=== PATIENT | female | born 1945 | race Caucasian/White ===

== ENCOUNTER 2019-11-09 13:59 | Emergency (ER) | payer MEDICARE, BC, SELFPAY ==
--- NOTE | ~2019-11-09 | CT_ITS ---
EXAMINATION: CT brain wo con DATE: 11/09/2019 15:41 INDICATION: Status post fall. Nasal pain. TECHNIQUE: Computed tomography (CT) of the head was performed without intravenous contrast. The dose- length product was 605.33 mGy-cm. The mA was adjusted according to patient size. Iterative reconstruc tion technique was employed. COMPARISON: 02/23/2011 FINDINGS: There are scattered moderate periventricular and subcortical white matter changes, most lik rosario related to small vessel ischemic disease (microangiopathy). Chronic left lacunar infarction. No a cute intracranial hemorrhage, infarction, mass or mass effect. There is intracranial atherosclerosis. Paranasal sinuses and mastoids are pneumatized. Midline sagittal images are unremarkable. IMPRESSION: 1. No acute intracranial abnormality. 2: Chronic left lacunar infarction. 3: Chronic age-related findings. Reviewed, dictated and finalized at location A. ATION CLERK
--- NOTE | ~2019-11-09 | CT_ITS ---
EXAMINATION: CT facial bones wo con EXAM DATE: 11/09/2019 15:40 INDICATION: Fall, nasal pain. TECHNIQUE: Spiral CT of the facial bones was acquired in the axial plane without contrast. Coronal reformatted images were also reviewed. The dose-length product (DLP) for this examination was 474.72 mGy-cm. The exposure was tailored according to patient size, and iterative reconstruction (ASIR) wa s used as additional dose reduction technique. There is no prior study for comparison. FINDINGS: There are no displaced nasal bone fractures. The mandible, sinuses and orbits are intact. The orbits, globes and extraocular muscles are unremarkable. Bilateral cataract surgery. There i s small right maxillary sinus retention cyst or polyp. IMPRESSION: 1. No acute facial fracture. Reviewed, dictated and finalized at location A. STANT MANAGER RETAIL
[2019-11-09 14:01] VITALS: BP 166/95; PULSE 60; RESP 16; TEMP 36.4; O2SAT 100
--- NOTE | 2019-11-09 15:28 | ED.FALL ---
HPI - Fall General Chief Complaint: Fall Stated Complaint: ground level fall Time Seen by Provider: 11/09/19 15:17 Source: patient Mode of arrival: ambulatory Limitations: no limitations History of Present Illness HPI Narrative: This is a 74-year-old female that presents the emergency department after a fall today. Reports she was walking her dog and tripped on the sidewalk. Reports hitting her face on the ground. She was unable to catch her fall. Reports since she has had nasal pain and swelling. Denies prodromal symptoms, other injuries, loss of consciousness, vision changes, vomiting, numbness or weakness. Related Data Home Medications Medication Instructions Recorded Confirmed Bacillus coagulans 10 billion cell cell PO 08/24/19 08/24/19 capsule,delayed release acyclovir 200 mg capsule 200 mg PO DAILY cap 08/24/19 08/24/19 aspirin 81 mg tablet,delayed 81 mg PO DAILY 08/24/19 08/24/19 release cholecalciferol (vitamin D3) 25 1,000 unit PO DAILY 08/24/19 08/24/19 mcg (1,000 unit) capsule conjugated estrogens 0.625 mg 0.625 mg PO DAILY 08/24/19 08/24/19 tablet levothyroxine 125 mcg tablet 125 mcg PO DAILY 08/24/19 08/24/19 mirabegron 25 mg tablet,extended 25 mg PO DAILY 08/24/19 08/24/19 release 24 hr omeprazole 20 mg capsule,delayed 20 mg PO DAILY 08/24/19 08/24/19 release turmeric 400 mg capsule 25 mg PO cap 08/24/19 08/24/19 Allergies Allergy/AdvReac Type Severity Reaction Status Date / Time Sulfa (Sulfonamide Allergy Unknown Hives Verified 11/09/19 15:16 Antibiotics) Review of Systems Review of Systems: Narrative: CONSTITUTIONAL: Denies fever EYES: Denies visual changes CARDIOVASCULAR: Denies chest pain GASTROINTESTINAL: Denies vomiting MUSCULOSKELETAL: Denies back pain, joint pain, or myalgia. NEUROLOGIC: Denies headache, numbness, or weakness. All systems reviewed & are unremarkable except as noted in HPI and below PMFSH Past Medical History Medical History (Updated 11/09/19 @ 15:59 by Johanna Jose PA-C) Aortic valve insufficiency Arthritis Cardiac murmur Chronic fatigue, unspecified Essential hypertension Gastroesophageal reflux disease with esophagitis Left hip pain Vitamin D deficiency, unspecified Surgical History Surgical History (Updated 08/24/19 @ 08:17 by [place] Stark [facility]) History of bladder suspension procedure S/P hysterectomy with oophorectomy Family History Family History (Updated 01/03/19 @ 13:30 by DOCTOR UNKNOWN) Sibling Patient's sister is in good health Patient's brother is in good health Father Family history unknown Mother Family history of malignant neoplasm of esophagus Family history of malignant neoplasm Social History Social History Smoking status: Never smoker Alcohol intake: never Exam Narrative: Exam Narrative: GENERAL: Elderly, well-nourished, and in no acute distress. HEAD: Normocephalic. Moderate amount of nasal swelling and bruising EYES: PERRLA and EOMI. ENT: Nares clear, no rhinorrhea or epistaxis. Mucous membranes moist. Oropharynx without tonsillar hypertrophy exudate or other lesions. Bilateral TMs pearly montes non-bulging NECK: Supple. No adenopathy or masses. No midline spinal tenderness CHEST: Clear to auscultation. No respiratory distress. No wheezes rales or rhonchi HEART: Regular rate and rhythm. No murmur heard. Normal peripheral pulses. EXTREMITIES: Normal range of motion. No edema. Strength equal in bilateral upper extremities (5/5) SKIN: Warm, dry, no rash. NEURO: No focal deficits. Alert and oriented x3. Cranial nerves II through XII grossly intact. Normal [id number] PSYCH: Normal mood and affect Course Vital Signs Vital signs: Vital Signs Temperature 97.5 F L 11/09/19 14:01 Pulse Rate 60 11/09/19 14:01 Respiratory Rate 16 11/09/19 14:01 Blood Pressure 166/95 H 11/09/19 14:01 Pulse Oximetry 100 11/09/19 14:01 Temperature 97.5 F L 11/09/19 14:01 P
== END 2019-11-09 17:37 | disposition home or self-care (01) ==
PROVIDERS: Emergency Provider Emergency Medicine; PCP Internal Medicine
DX: S00.33XA Contusion of nose, initial encounter (principal); Z79.82 Long term (current) use of aspirin; M19.90 Unspecified osteoarthritis, unspecified site; I35.1 Nonrheumatic aortic (valve) insufficiency; I10 Essential (primary) hypertension; K21.0 Gastro-esophageal reflux disease with esophagitis; E55.9 Vitamin D deficiency, unspecified; Y93.K1 Activity, walking an animal; W01.0XXA Fall on same level from slipping, tripping and stumbling without subsequent striking against object, initial encounter
CPT/HCPCS: 70450; 70486; 99284

== ENCOUNTER 2020-04-18 10:38 | Outpatient (CLI) | payer MEDICARE, BC, SELFPAY ==
[2020-04-18 11:04] LABS: Hematocrit 37.1 % (37.0-47.0); Hemoglobin 11.5 g/dL (12.0-15.0)
[2020-04-18 11:19] LABS: Anion Gap 12.4 mmol/L (7-16); Blood Urea Nitrogen 20 mg/dL (7-17); Calcium 9.2 mg/dL (8.4-10.2); Carbon Dioxide 26 mmol/L (22-30); Chloride 107 mmol/L (98-107); Estimated Glomerular Filt Rate > 60; Glucose 95 mg/dL (65-105); Potassium 4.4 mmol/L (3.4-5.0); Sodium 141 mmol/L (137-145)
[2020-04-18 12:08] LABS: Vitamin D 25 Hydroxy 37.8 ng/mL
[2020-04-21 17:48] LABS: ANA Cascade Screen Negative (Negative)
== END 2020-04-18 10:39 | disposition home or self-care (01) ==
PROVIDERS: PCP Internal Medicine; Visit Provider Internal Medicine
DX: E55.9 Vitamin D deficiency, unspecified (principal); E03.9 Hypothyroidism, unspecified; I10 Essential (primary) hypertension; D64.9 Anemia, unspecified; R53.83 Other fatigue; Z84.0 Family history of diseases of the skin and subcutaneous tissue
CPT/HCPCS: 36415; 80048; 82306; 84443; 85014; 85018; 86038

== ENCOUNTER 2020-06-29 10:33 | Outpatient (CLI) | payer MEDICARE, BC, SELFPAY | END 2020-06-29 10:34 | disposition home or self-care (01) | PROVIDERS: PCP Internal Medicine; Visit Provider Internal Medicine | DX: E03.9 Hypothyroidism, unspecified (principal) | CPT/HCPCS: 36415; 84443 ==

== ENCOUNTER 2020-08-28 13:48 | Outpatient (CLI) | payer MEDICARE, BC, SELFPAY ==
--- NOTE | 2020-08-28 13:56 | ECHO_ITS ---
Patient Info Name: Keisha Collins Age: 74 years : 1945 Gender: Female Ht: 65 in Wt: 180 lbs BSA: 1.96 m2 BP: 148 / 77 mmHg Technical Quality: Good Exam Date: 08/28/2020 2:09 PM Exam Location: [facility] Patient Status: Outpatient Admit Date: 08/28/2020 Staff Ordering Physician: Brett Steiner DO Equipment Records Supervisor: Mauricio Clark RDCS, RT Attending Provider: Brett Steiner DO Referring Physician: Jatin MOON; Exam Type: CA echo doppler color flow Study Info Indications I35.1 - Nonrheumatic aortic (valve) insufficiency Complete two-dimensional, color flow and Doppler transthoracic echocardiogram is performed. Strain analysis performed. Summary 1. Complete two-dimensional, color flow and Doppler transthoracic echocardiogram is performed. 2. Left ventricular chamber dimension is normal. 3. Left ventricular systolic function is normal, estimated at 65-70%. 4. There is mildly increased left ventricular wall thickness. 5. The left ventricular diastolic function is grade I diastolic dysfunction. 6. E/e' 18 is elevated. 7. Global longitudinal strain is normal at -19.4%. 8. Left atrial chamber dimension is mildly enlarged. 9. There is mild to moderate aortic valve regurgitation. 10. The mitral valve has mildly calcified annulus. 11. There is trace tricuspid valve regurgitation. 12. No pulmonary hypertension, estimated pulmonary arterial systolic pressure is 38 mmHg. Left Ventricle E/e' 18 is elevated. Global longitudinal strain is normal at -19.4%. Left ventricular chamber dimension is normal. Left ventricular systolic function is normal, estimated at 65-70%. There is mildly increased left ventricular wall thickness. The left ventricular diastolic function is grade I diastolic dysfunction. Right Ventricle Right ventricular chamber dimension is normal. Right ventricular systolic function is normal. Left Atria Left atrial chamber dimension is mildly enlarged. Right Atria Right atrial chamber dimension is normal. Aortic Valve The aortic valve is trileaflet. There is no aortic valve stenosis. There is mild to moderate aortic valve regurgitation. Pulmonic Valve There is no pulmonic regurgitation. Mitral Valve The mitral valve has mildly calcified annulus. There is no mitral valve stenosis. There is no mitral valve regurgitation. Tricuspid Valve There is trace tricuspid valve regurgitation. No pulmonary hypertension, estimated pulmonary arterial systolic pressure is 38 mmHg. Pericardium/Pleural There is no pericardial effusion. Inferior Vena Cava Normal inferior vena cava with >50% collapse upon inspiration consistent with normal right atrial pressure, 5 mmHg. Aorta The aortic root size at the sinus of Valsalva is normal. Left Ventricular Outflow Tract Name Value Normal LVOT 2D LVOT Diameter 2.0 cm LVOT Doppler LVOT Peak Gradient 6 mmHg LVOT Mean Gradient 2 mmHg LVOT VTI 30 cm LVOT VTI/AV VTI Ratio 0.7 LVOT Stroke Volume
== END 2020-08-28 13:49 | disposition home or self-care (01) ==
PROVIDERS: PCP Internal Medicine; Visit Provider Internal Medicine Cardiovascular Disease
DX: I35.1 Nonrheumatic aortic (valve) insufficiency (principal)
CPT/HCPCS: 93306

== ENCOUNTER 2020-09-16 08:43 | Outpatient (CLI) | payer MEDICARE, BC, SELFPAY ==
[2020-09-16 09:11] LABS: Alanine Aminotransferase 25 U/L (4-35); Alkaline Phosphatase 81 U/L (38-126); Anion Gap 6 mmol/L (8-16); Aspartate Amino Transferase 33 U/L (14-36); Bilirubin,Total 0.4 mg/dL (0.2-1.3); Blood Urea Nitrogen 17 mg/dL (7-17); Calcium 9.5 mg/dL (8.4-10.2); Carbon Dioxide 29 mmol/L (22-30); Chloride 108 mmol/L (98-107); Cholesterol 202 mg/dL (0-200); Estimated Glomerular Filt Rate > 60; Glucose 107 mg/dL (65-105); HDL Direct 44 mg/dL; Potassium 4.2 mmol/L (3.4-5.0); Sodium 143 mmol/L (137-145); Triglycerides 157 mg/dL (<150)
[2020-09-16 09:22] LABS: LDL Cholesterol Direct 127 mg/dL
[2020-09-16 09:41] LABS: Thyroid Stimulating Hormone 0.569 uIU/mL (0.465-4.680)
[2020-09-16 09:53] LABS: Vitamin D 25 Hydroxy 41.4 ng/mL
== END 2020-09-16 08:44 | disposition home or self-care (01) ==
PROVIDERS: PCP Internal Medicine; Visit Provider Internal Medicine
DX: Z13.220 Encounter for screening for lipoid disorders (principal); R53.83 Other fatigue; I10 Essential (primary) hypertension; E03.9 Hypothyroidism, unspecified; E55.9 Vitamin D deficiency, unspecified
CPT/HCPCS: 36415; 80053; 80061; 82306; 84443

== ENCOUNTER 2020-11-26 13:29 | Outpatient (CLI) | payer MEDICARE, BC, SELFPAY ==
--- NOTE | 2020-11-28 12:51 | WPDHOLTEREM ---
Holter/Event Monitor Holter/Event Monitor Date of procedure: 11/26/20 Procedure Type: 24 hour holter monitor Indications: PVC's Conclusion: 1. 24 hour holter monitor on 11/26/20. 2. Predominant rhythm is sinus rhythm. HR range 45-100 bpm; average HR 61 bpm. 3. There are 642 premature supraventricular complexes and 13 supraventricular couplets. There are 2 episodes of atrial tachycardia, fastest at 143 bpm and longest lasting 8 beats. 4. There are 6,751 premature ventricular complexes, 153 ventricular couplets, 1 ventricular triplet and 250 ventricular trigeminy. One ventricular tachycardia at 130 bpm lasting 4 beats. 5. No sinoatrial or atrioventricular blocks. No significant pauses greater than 2 seconds. 6. No symptoms available for correlation.
== END 2020-11-26 13:30 | disposition home or self-care (01) ==
PROVIDERS: PCP Internal Medicine; Visit Provider Internal Medicine
DX: I49.3 Ventricular premature depolarization (principal)
CPT/HCPCS: 93225; 93226

== ENCOUNTER → 2020-12-10 03:15 | Outpatient (CLI) | payer MEDICARE, BC, SELFPAY ==
[2020-12-10 18:08] LABS: SARS-CoV-2 RNA PCR Negative
== END ==
PROVIDERS: PCP Internal Medicine; Visit Provider Internal Medicine Critical Care Medicine
DX: Z20.822 Contact with and (suspected) exposure to COVID-19 (principal)
CPT/HCPCS: C9803; U0003; U0005

== ENCOUNTER 2020-12-13 09:03 | Outpatient (CLI) | payer MEDICARE, BC, SELFPAY ==
--- NOTE | 2020-12-27 10:13 | WPDSLEEPSTUD ---
Sleep Study Ordering Provider: Brett Steiner DO Interpreting Physician: Mariza Enamorado MD Sleep Study Type: Split Polysomnogram Height: 1.63 m Weight: 81.647 kg Body Mass Index: 30.9 Neck Circumference (inches): 15 Newborn: 8 Reason for Sleep Study Severe fatigue, tired upon waking Sleep History Keisha Collins is a 75 year old female who complains of severe fatigue. She is tired in the morning after waking. She does not snore and other people do not tell her that she snores. She does not awaken at night with heartburn, belching or coughing. She does not awaken from sleep feeling short of breath. She does not have trouble sleep with a cold and she does not gasp for breath at night. She does not sweat excessively at night or notice her heart pounding or beating irregularly night. She frequently falls asleep during the day, never involuntarily, and never while driving. She does not have loss of muscle tone with strong emotion, and she does not have daytime difficulties due to excessive sleepiness , now retired. She does not feel paralyzed on waking or falling asleep. She does not have vivid dreamlike scenes upon awakening or falling asleep. She does not feel afraid to go to sleep. She does not have nightmares. She does not remember her dreams. She denies racing thoughts. She does not feel sad, depressed, or anxious. She does not have muscular tension. She has not noticed parts of her body jerking at night, does not kick at night, and does not have crawling or aching feelings in her legs prior to sleep. She does not have any kind of leg pain at night. She denies morning jaw pain. She does not grind her teeth during sleep. She frequently is bothered by pain during the day. She is not awakened by pain at night. She occasionally feels stiff in the morning with sore or achy muscles. She does not wake up with pain in the neck and spine. She has headaches, IBS, fatigue and occasional insomnia. Normal bedtime is 11:00 p.m. falling asleep sometimes within 15 minutes. She wakes twice to go to the bathroom, staying awake for 5 minutes. She wakes the morning at 7:30 a.m.. Her weekend schedule is the same. She estimates 7- 8 hours of sleep at night. She takes naps. A short nap may be refreshing. She feels better in the morning compared to other times of day. Habits: No tobacco. Caffeine: 2 servings of tea per day. No alcohol or recreational drugs. [facility] Past Medical History Medical History Aortic valve insufficiency Arthritis Cardiac murmur Chronic fatigue, unspecified Essential hypertension Gastroesophageal reflux disease with esophagitis Left hip pain Vitamin D deficiency, unspecified Surgical History Surgical History History of bladder suspension procedure S/P hysterectomy with oophorectomy Family History Family History Sibling Patient's sister is in good health Patient's brother is in good health Father Family history unknown Mother Family history of malignant neoplasm of esophagus Family history of malignant neoplasm Social History Social History Smoking status: Never smoker Alcohol intake: never Medications Home Medications Medication Instructions Recorded Confirmed Type Bacillus coagulans 10 billion cell cell PO 08/24/19 12/03/20 History capsule,delayed release aspirin 81 mg tablet,delayed 81 mg PO DAILY 08/24/19 12/03/20 History release cholecalciferol (vitamin D3) 25 1,000 unit PO DAILY 08/24/19 12/03/20 History mcg (1,000 unit) capsule conjugated estrogens 0.625 mg 0.625 mg PO DAILY 08/24/19 12/03/20 History tablet mirabegron 25 mg tablet,extended 25 mg PO DAILY 08/24/19 12/03/20 History release 24 hr dicyclomine 10 mg capsule 10 mg PO DAILY PRN
[2020-12-27 11:56] VITALS: BMI 30.9
== END 2020-12-13 09:04 | disposition home or self-care (01) ==
LOC: ANHCSM 09:03
PROVIDERS: PCP Internal Medicine; Visit Provider Internal Medicine Cardiovascular Disease
DX: G47.33 Obstructive sleep apnea (adult) (pediatric) (principal); G47.10 Hypersomnia, unspecified
CPT/HCPCS: 95811

== ENCOUNTER 2020-12-13 09:34 | Outpatient (CLI) | payer MEDICARE, BC, SELFPAY ==
--- NOTE | ~2020-12-13 | NM_ITS ---
EXAMINATION: NM ren stress w perfusion DATE: 12/13/2020 11:45 INDICATION: Palpitations. Dyspnea with exertion. TECHNIQUE: Rest images were obtained following intravenous administration of 9.2 mCi Tc99m tetrofosmi n (Myoview). The patient was infused intravenously with Lexiscan (Regadenoson). Then, 29.77 mCi Tc99m tetrofosmin (Myoview) was administered intravenously, and stress images were obtained. Data was sergei nstructed into short axis and horizontal and vertical long axis SPECT images. Gated SPECT images were also obtained. COMPARISON: None. FINDINGS: There is no definite reversible or fixed perfusion abnormality to suggest ischemia or infarction. Th ere is normal left ventricular chamber size, wall motion and ejection fraction. Left ventricular eje ction fraction measures 66%. IMPRESSION: 1. Normal myocardial perfusion at rest and during stress. 2. Left ventricular ejection fraction measuring 66%. Reviewed, dictated and finalized at location A.
--- NOTE | 2020-12-13 09:40 | EST_ITS ---
Patient Info Name: Keisha Collins Age: 75 years : 1945 Gender: Female Ht: 64 in Wt: 180 lbs BSA: 1.95 m2 Exam Date: 12/13/2020 10:24 AM Exam Location: [facility] Stress Patient Status: Outpatient Admit Date: 12/13/2020 Staff Ordering Physician: Brett Steiner DO Attending Provider: Brett Steiner DO Exercise Technologist: Estefani Lott RDCS Exercise Physician: Brett Steiner DO Exam Type: CA stress ren w NM Study Info Indications R00.2 - Palpitations A regadenoson stress test was performed. Summary 1. 1. Negative lexiscan stress test for ischemic ST changes by ECG criteria. 2. 2. Baseline sinus bradycardia. 3. 3. Nuclear scan to follow and will be reported separately. Please correlate with it. 4. 4. Patient advised to decrease Metoprolol Succinate 25 mg daily due to bradycardia. 5. 5. Patient informed of the above results. Protocol: Lexiscan Stress ECG Details Stage: REST Duration (min): 8 min : 20 sec HR (bpm): 47 SBP (mmHg): 132 DBP (mmHg): 71 Stage: REST Duration (min): 11 min : 30 sec HR (bpm): 50 SBP (mmHg): 132 DBP (mmHg): 71 Stage: STAGE 1 Duration (min): 0 min : 59 sec HR (bpm): 70 SBP (mmHg): 132 DBP (mmHg): 71 Stage: RECOVERY Duration (min): 1 min : 0 sec HR (bpm): 69 SBP (mmHg): 159 DBP (mmHg): 71 Stage: RECOVERY Duration (min): 2 min : 0 sec HR (bpm): 66 SBP (mmHg): 159 DBP (mmHg): 71 Stage: RECOVERY Duration (min): 3 min : 0 sec HR (bpm): 65 SBP (mmHg): 151 DBP (mmHg): 70 Stage: RECOVERY Duration (min): 4 min : 0 sec HR (bpm): 66 SBP (mmHg): 151 DBP (mmHg): 70 Stage: RECOVERY Duration (min): 4 min : 43 sec HR (bpm): 63 SBP (mmHg): 136 DBP (mmHg): 72 Rest HR: 50 bpm Peak HR: 72 bpm Rest Sys BP: 132 mmHg Peak Sys BP: 159 mmHg Max Pred HR: 145 bpm % Max Pred HR: 50 % Target HR: 123 bpm Max RPP: 11,448 bpm*mmHg Termination Reason: Completed protocol Cardiac Symptoms: Shortness of breath Total Time: 1 min : 0 sec Rest Verde BP: 71 mmHg Peak Verde BP: 71 mmHg Total Dose: 0.4 mg Resting ECG Sinus bradycardia. Stress ECG No ST changes. Arrhythmias None. Report Signatures
== END 2020-12-13 09:35 | disposition home or self-care (01) ==
LOC: ANHCARD 09:34
PROVIDERS: PCP Internal Medicine; Visit Provider Internal Medicine Cardiovascular Disease
DX: R06.09 Other forms of dyspnea (principal); R00.2 Palpitations
CPT/HCPCS: 78452; 93017; 95811; A9502; J2785

== ENCOUNTER 2021-03-12 09:43 | Outpatient (CLI) | payer MEDICARE, BC, SELFPAY ==
[2021-03-12 10:31] LABS: Alanine Aminotransferase 15 U/L (4-35); Albumin Level 4.2 g/dL (3.5-5.1); Alkaline Phosphatase 80 U/L (38-126); Anion Gap 7 mmol/L (8-16); Aspartate Amino Transferase 25 U/L (14-36); Bilirubin,Total 0.3 mg/dL (0.2-1.3); Blood Urea Nitrogen 18 mg/dL (7-17); Calcium 9.7 mg/dL (8.4-10.2); Carbon Dioxide 29 mmol/L (22-30); Chloride 107 mmol/L (98-107); Cholesterol 154 mg/dL (0-200); Estimated Glomerular Filt Rate > 60; Glucose 93 mg/dL (65-105); HDL Direct 60 mg/dL; Potassium 5.1 mmol/L (3.4-5.0); Sodium 143 mmol/L (137-145); Triglycerides 90 mg/dL (<150)
[2021-03-12 10:41] LABS: LDL Cholesterol Direct 72 mg/dL
[2021-03-12 10:58] LABS: Thyroid Stimulating Hormone 0.249 uIU/mL (0.465-4.680)
[2021-03-12 11:23] LABS: Vitamin D 25 Hydroxy 44.7 ng/mL
== END 2021-03-12 09:44 | disposition home or self-care (01) ==
LOC: ANHLAB 09:47
PROVIDERS: PCP Internal Medicine; Visit Provider Nurse Practitioner
DX: E03.9 Hypothyroidism, unspecified (principal); R73.02 Impaired glucose tolerance (oral); E55.9 Vitamin D deficiency, unspecified
CPT/HCPCS: 36415; 80053; 80061; 82306; 83036; 84443

== ENCOUNTER 2021-03-29 10:13 | Outpatient (CLI) | payer MEDICARE, BC, SELFPAY ==
--- NOTE | ~2021-03-29 | CT_ITS ---
EXAMINATION: CT brain wo con DATE: 03/29/2021 10:51 INDICATION: Headache. TECHNIQUE: Computed tomography (CT) of the head was performed without intravenous contrast. The mA wa s adjusted according to patient size. Iterative reconstruction technique was employed. The dose-lengt h product was 605.33 mGy-cm. COMPARISON: Head CT 11/09/2019 FINDINGS: There are scattered areas of low attenuation in the cerebral white matter. There is an old lacunar infarct versus prominent perivascular space in the left basal ganglia. There is no intracrani al hemorrhage, acute infarction, or abnormal intracranial mass lesion. The ventricles are normal in s ize. The paranasal sinuses are clear. There are likely changes of ocular lens replacement surgeries. The mastoid air cells are normal. IMPRESSION: 1. Stable moderate nonspecific cerebral white matter disease, which likely represents chronic small v essel ischemic disease. 2. Old lacunar infarct versus prominent perivascular space in the left basal ganglia. Reviewed, dictated and finalized at location A. IMPRESSION: 1. Stable moderate nonspecific cerebral white matter disease, which likely repr esents chronic small vessel ischemic disease. 2. Old lacunar infarct versus prominent perivascular space in the left basal ga nglia.
== END 2021-03-29 10:14 | disposition home or self-care (01) ==
PROVIDERS: PCP Internal Medicine; Visit Provider Internal Medicine
DX: R51.9 Headache, unspecified (principal); R90.82 White matter disease, unspecified; R93.0 Abnormal findings on diagnostic imaging of skull and head, not elsewhere classified
CPT/HCPCS: 70450

== ENCOUNTER 2021-10-11 08:47 | Outpatient (CLI) | payer MEDICARE, BC, SELFPAY ==
[2021-10-11 09:13] LABS: Alanine Aminotransferase 29 U/L (4-35); Albumin Level 4.5 g/dL (3.5-5.1); Alkaline Phosphatase 87 U/L (38-126); Anion Gap 9 mmol/L (8-16); Aspartate Amino Transferase 32 U/L (14-36); Bilirubin,Total 0.5 mg/dL (0.2-1.3); Blood Urea Nitrogen 27 mg/dL (7-17); Calcium 9.6 mg/dL (8.4-10.2); Carbon Dioxide 26 mmol/L (22-30); Chloride 104 mmol/L (98-107); Cholesterol 207 mg/dL (0-200); Estimated Glomerular Filt Rate 44; Glucose 114 mg/dL (65-110); HDL Direct 51 mg/dL; Potassium 4.6 mmol/L (3.4-5.0); Sodium 139 mmol/L (137-145); Triglycerides 152 mg/dL (<150)
[2021-10-11 09:24] LABS: LDL Cholesterol Direct 119 mg/dL
[2021-10-11 10:05] LABS: Hemoglobin A1C 5.8 % (<5.7)
== END 2021-10-11 08:48 | disposition home or self-care (01) ==
PROVIDERS: PCP Internal Medicine; Visit Provider Internal Medicine
DX: I10 Essential (primary) hypertension (principal); E03.9 Hypothyroidism, unspecified; E78.5 Hyperlipidemia, unspecified; R73.02 Impaired glucose tolerance (oral); Z79.899 Other long term (current) drug therapy
CPT/HCPCS: 36415; 80053; 80061; 83036; 84443

== ENCOUNTER 2022-01-21 09:08 | Outpatient (CLI) | payer MEDICARE, BC, SELFPAY ==
[2022-01-21 10:24] LABS: Anion Gap 10 mmol/L (8-16); Blood Urea Nitrogen 30 mg/dL (7-17); Calcium 9.5 mg/dL (8.4-10.2); Carbon Dioxide 25 mmol/L (22-30); Chloride 106 mmol/L (98-107); Estimated Glomerular Filt Rate 44; Glucose 102 mg/dL (65-110); Potassium 4.5 mmol/L (3.4-5.0); Sodium 141 mmol/L (137-145)
== END 2022-01-21 09:09 | disposition home or self-care (01) ==
LOC: ANHLAB 09:11
PROVIDERS: PCP Internal Medicine; Visit Provider Internal Medicine
DX: I10 Essential (primary) hypertension (principal)
CPT/HCPCS: 36415; 80048

== ENCOUNTER 2022-03-20 14:11 | Outpatient (CLI) | payer MEDICARE, BC, SELFPAY ==
[2022-04-04 13:25] LABS: Gliadin AB, IgG <1.0 U/mL (<15.0); Reticulin IgA Negative (Negative); TTG IGA AB <1.0 U/mL (<15.0)
== END 2022-03-20 14:12 | disposition home or self-care (01) ==
LOC: ANHLAB 14:13
PROVIDERS: Nurse Practitioner; PCP Internal Medicine; Visit Provider Internal Medicine Gastroenterology
DX: K58.9 Irritable bowel syndrome, unspecified (principal)
CPT/HCPCS: 36415; 83516; 86255

== ENCOUNTER 2022-03-21 11:37 | Outpatient (CLI) | payer MEDICARE, BC, SELFPAY ==
[2022-03-27 20:56] LABS: Calprotectin, Stool 26 mcg/g
== END 2022-03-21 11:38 | disposition home or self-care (01) ==
PROVIDERS: PCP Internal Medicine; Visit Provider Nurse Practitioner
DX: K58.9 Irritable bowel syndrome, unspecified (principal)
CPT/HCPCS: 83993

== ENCOUNTER 2022-04-13 09:28 | Outpatient (CLI) | payer MEDICARE, BC, SELFPAY ==
[2022-04-13 10:21] LABS: Alanine Aminotransferase 28 U/L (6-35); Albumin Level 4.4 g/dL (3.5-5.1); Alkaline Phosphatase 79 U/L (38-126); Anion Gap 8 mmol/L (8-16); Aspartate Amino Transferase 32 U/L (14-36); Bilirubin,Total 0.5 mg/dL (0.2-1.3); Blood Urea Nitrogen 29 mg/dL (7-17); Calcium 9.5 mg/dL (8.4-10.2); Carbon Dioxide 26 mmol/L (22-30); Chloride 106 mmol/L (98-107); Cholesterol 229 mg/dL (0-200); Estimated Glomerular Filt Rate 44; Glucose 92 mg/dL (65-110); HDL Direct 47 mg/dL; Potassium 4.8 mmol/L (3.4-5.0); Sodium 140 mmol/L (137-145); Triglycerides 150 mg/dL (<150)
[2022-04-13 10:32] LABS: LDL Cholesterol Direct 125 mg/dL
[2022-04-13 10:48] LABS: Vitamin D 25 Hydroxy 41.7 ng/mL
[2022-04-13 11:21] LABS: Hemoglobin A1C 5.6 % (<5.7)
== END 2022-04-13 09:29 | disposition home or self-care (01) ==
PROVIDERS: PCP Internal Medicine; Visit Provider Internal Medicine
DX: E55.9 Vitamin D deficiency, unspecified (principal); E03.9 Hypothyroidism, unspecified; E78.5 Hyperlipidemia, unspecified; R73.02 Impaired glucose tolerance (oral); I10 Essential (primary) hypertension; Z79.899 Other long term (current) drug therapy
CPT/HCPCS: 36415; 80053; 80061; 82306; 83036; 84443

== ENCOUNTER 2022-10-30 12:16 | Outpatient (CLI) | payer MEDICARE, BC, SELFPAY ==
--- NOTE | ~2022-10-30 | XR_ITS ---
AP and lateral views of the right hip Clinical history: Pain Findings: No acute fracture or dislocation is seen. Osseous alignment is anatomic. Right hip joint an d right SI joint are preserved. Soft tissues are unremarkable. Impression: No significant abnormality is seen. Reviewed, dictated and finalized at [facility]. TENANCE AND CUSTODIAN SUPERVISOR Impression: No significant abnormality is seen.
== END 2022-10-30 12:17 | disposition home or self-care (01) ==
LOC: ANHIMG 12:20
PROVIDERS: PCP Internal Medicine; Visit Provider Internal Medicine
DX: M25.551 Pain in right hip (principal)
CPT/HCPCS: 73502

== ENCOUNTER 2022-11-30 09:17 | Outpatient (CLI) | payer MEDICARE, BC, SELFPAY ==
--- NOTE | 2022-11-30 09:44 | ECHO_ITS ---
Patient Info Name: Keisha Collins Age: 77 years : 1945 Gender: Female Ht: 64 in Wt: 175 lbs BSA: 1.92 m2 HR: 57 bpm BP: 147 / 81 mmHg Technical Quality: Fair Exam Date: 11/30/2022 9:59 AM Exam Location: [facility] Patient Status: Outpatient Admit Date: 11/30/2022 Staff Ordering Physician: Brett Steiner DO [address] Court Reporter: Irma Hubbard RDCS Attending Provider: Brett Steiner DO Referring Physician: Jatin MOON; Exam Type: CA echo doppler color flow Study Info Indications I35.1 - Nonrheumatic aortic (valve) insufficiency Complete two-dimensional, color flow and Doppler transthoracic echocardiogram is performed. Summary 1. Complete two-dimensional, color flow and Doppler transthoracic echocardiogram is performed. 2. Left ventricular chamber dimension is normal. 3. Left ventricular systolic function is normal, estimated at 65-70%. 4. The left ventricular diastolic function is grade I diastolic dysfunction. 5. E/e' 13 is mildly elevated. 6. Left atrial chamber dimension is severely enlarged. 7. There is mild aortic valve sclerosis. 8. There is mild aortic valve regurgitation. 9. The mitral valve has moderately calcified annulus. 10. There is trace mitral valve regurgitation. 11. There is trace tricuspid valve regurgitation. 12. No pulmonary hypertension, estimated pulmonary arterial systolic pressure is 36 mmHg. Left Ventricle E/e' 13 is mildly elevated. Left ventricular chamber dimension is normal. Left ventricular systolic function is normal, estimated at 65-70%. The left ventricular diastolic function is grade I diastolic dysfunction. Right Ventricle Right ventricular chamber dimension is normal. Right ventricular systolic function is normal. Left Atria Left atrial chamber dimension is severely enlarged. Right Atria Right atrial chamber dimension is normal. Aortic Valve The aortic valve is trileaflet. There is mild aortic valve sclerosis. There is no aortic valve stenosis. There is mild aortic valve regurgitation. Pulmonic Valve There is no pulmonic regurgitation. Mitral Valve The mitral valve has moderately calcified annulus. There is no mitral valve stenosis. There is trace mitral valve regurgitation. Tricuspid Valve There is trace tricuspid valve regurgitation. No pulmonary hypertension, estimated pulmonary arterial systolic pressure is 36 mmHg. Pericardium/Pleural There is no pericardial effusion. Inferior Vena Cava Normal inferior vena cava with >50% collapse upon inspiration consistent with normal right atrial pressure, 5 mmHg. Aorta The aortic root size at the sinus of Valsalva is normal. Left Ventricular Outflow Tract Name Value Normal LVOT 2D LVOT Diameter 2.0 cm LVOT Doppler LVOT Peak Gradient 6 mmHg LVOT Mean Gradient 2 mmHg LVOT VTI 29 cm LVOT VTI/AV VTI Ratio 0.7 LVOT Stroke Volume 89 ml Pulmonic Valve Name
== END 2022-11-30 09:18 | disposition home or self-care (01) ==
LOC: ANHCARD 09:19
PROVIDERS: PCP Internal Medicine; Visit Provider Internal Medicine Cardiovascular Disease
DX: I35.1 Nonrheumatic aortic (valve) insufficiency (principal)
CPT/HCPCS: 93306

== ENCOUNTER 2023-03-02 00:27 | Day surgery (SDC) | payer MEDICARE, BC, SELFPAY ==
[2023-02-22 13:11] VITALS: BMI 29.3
[2023-03-02 09:50] VITALS: BP 164/56; PULSE 58; RESP 16; TEMP 35.9; O2SAT 99; BMI 27.6
--- NOTE | 2023-03-02 10:07 | WPDANESEPPF ---
Anes - Initial Pre Proc Eval Procedure: Operation Date: 03/02/23 11:00 Proposed Procedures p Esophagogastroduodenoscopy & Colonoscopy - Jason Jeffery MD Date/Time: 03/02/23 10:07 Surgeon: Jason Jeffery MD Pre Op Diagnosis: GERD, hx colon polyps Patient Data Age: 77 Gender: F Height: 1.63 m Weight: 72.9 kg Last Vital Signs Temp 35.9 C L 03/02/23 09:50 Pulse 58 L 03/02/23 09:50 Resp 16 03/02/23 09:50 BP 164/56 H 03/02/23 09:50 Pulse Ox 99 03/02/23 09:50 O2 Del Method Room Air 03/02/23 09:50 Allergies Allergy/AdvReac Type Severity Reaction Status Date / Time Sulfa (Sulfonamide Allergy Unknown Hives Verified 03/02/23 09:57 Antibiotics) Home Medications Medication Instructions Recorded Confirmed Type aspirin 81 mg tablet,delayed 81 mg PO DAILY 08/24/19 03/02/23 History release (Adult Low Dose Aspirin) cholecalciferol (vitamin D3) 25 1,000 unit PO DAILY 08/24/19 03/02/23 History mcg (1,000 unit) capsule valsartan 160 mg tablet See Rx Instructions .Route 04/21/22 03/02/23 Rx .COMPLEX #180 tabs ezetimibe 10 mg tablet (Zetia) 10 mg PO DAILY #30 tabs 05/11/22 03/02/23 Rx omeprazole 20 mg capsule,delayed See Rx Instructions .Route 07/06/22 03/02/23 Rx release .COMPLEX #90 caps levothyroxine 112 mcg tablet 112 mcg PO DAILY #90 tabs 08/25/22 03/02/23 Rx (Synthroid) hydralazine 25 mg tablet 25 mg PO BID #180 tabs 09/22/22 03/02/23 Rx hydrocortisone-pramoxine 2.5 %-1 % 1 applic RECTAL BID PRN 09/24/22 03/02/23 Rx rectal cream hemorrhoids #30 grams metoprolol succinate 25 mg See Rx Instructions .Route 10/29/22 03/02/23 Rx tablet,extended release 24 hr .COMPLEX #90 tabs colestipol 1 gram tablet 1 g PO DAILY PRN Diarrhea 02/22/23 03/02/23 History ferrous sulfate 325 mg (65 mg 325 mg PO DAILY 02/22/23 03/02/23 History iron) tablet folic acid 1 mg tablet 1 mg PO DAILY 02/22/23 03/02/23 History latanoprost 0.005 % eye drops 1 drp EACH EYE HS 02/22/23 03/02/23 History magnesium 500 mg tablet 500 mg PO BID 02/22/23 03/02/23 History rosuvastatin 20 mg tablet 20 mg PO DAILY 02/22/23 03/02/23 History tramadol 50 mg tablet 50 mg PO BID 02/22/23 03/02/23 History Patient hx anesthesia problems: none Family hx anesthesia problems: none Results Review: All pre-operative results and documents have been reviewed as part of the pre-operative evaluation. ON LICENSE OF [facility] Past Medical History Medical History Aortic valve insufficiency Arthritis Cardiac murmur Chronic fatigue, unspecified Essential hypertension Gastroesophageal reflux disease with esophagitis Hemorrhoids Left hip pain Nocturnal leg cramps Vitamin D deficiency, unspecified Surgical History Surgical History History of bladder suspension procedure S/P hysterectomy with oophorectomy Family History Family History Sibling Patient's sister is in good health Patient's brother is in good health Father Family history unknown Mother Family history of malignant neoplasm of esophagus Family history of malignant neoplasm Social History Social History Smoking status: Never smoker Alcohol intake: never Substance use: never Substance use type: does not use Living arrangements: with family Spiritual care concerns: No Anes - Eval Final PreProcedure Day of Procedure 03/02/23 10:07 Patient weight: overweight Heart: regular rate and rhythm Lungs: clear to auscultation and normal air movement Airway: Mallampati scale class II Neurological: alert and oriented Last oral intake: >/= 8 hours ASA classification: II Emergent: no Anesthetic plan: proceed Anesthesia type and monitoring: general GIVS Results Review: All pre-operative results and documents have been reviewed as part o
[2023-03-02] MEDS: LACTATED RINGERS 1,000 ML 150 ML IV CONT (10:11)
--- NOTE | 2023-03-02 10:17 | PM.HPGS ---
History of Present Illness History of Present Illness Consent: Risks, benefits, and alternatives have been discussed and questions answered. Patient agrees to proceed with procedure. Chief complaint: GERD, hx colon polyps Narrative: Keisha Collins is a 77 year old female Referred for both colonoscopy an EGD today. Patient states that she has GE reflux. She has had symptoms for long time. She states if she takes omeprazole 20mg p.o. daily this controls her symptoms. She has no recent heartburn or dysphagia. No weight loss. Patient also presents for screening colonoscopy. Was told that she had a hyperplastic polyp at time of previous colonoscopy 2018. She does have a history of irritable bowel syndrome in the past. History of cholecystectomy. She states if she gets diarrhea that is controlled by taking colestipol. She only takes this intermittently. She currently takes no medications at all. She has no bleeding or weight loss. Colonoscopy performed today because a history of colon polyp 2018. Review of Systems Review of Systems: Review of systems noncontributory. [facility] Past Medical History Medical History Aortic valve insufficiency Arthritis Cardiac murmur Chronic fatigue, unspecified Essential hypertension Gastroesophageal reflux disease with esophagitis Hemorrhoids Left hip pain Nocturnal leg cramps Vitamin D deficiency, unspecified Surgical History Surgical History History of bladder suspension procedure S/P hysterectomy with oophorectomy Family History Family History Sibling Patient's sister is in good health Patient's brother is in good health Father Family history unknown Mother Family history of malignant neoplasm of esophagus Family history of malignant neoplasm Social History Social History Smoking status: Never smoker Alcohol intake: never Substance use: never Substance use type: does not use Living arrangements: with family Spiritual care concerns: No Meds Home Medications and Allergies Home Medications Medication Instructions Recorded Confirmed Type aspirin 81 mg tablet,delayed 81 mg PO DAILY 08/24/19 03/02/23 History release (Adult Low Dose Aspirin) cholecalciferol (vitamin D3) 25 1,000 unit PO DAILY 08/24/19 03/02/23 History mcg (1,000 unit) capsule valsartan 160 mg tablet See Rx Instructions .Route 04/21/22 03/02/23 Rx .COMPLEX #180 tabs ezetimibe 10 mg tablet (Zetia) 10 mg PO DAILY #30 tabs 05/11/22 03/02/23 Rx omeprazole 20 mg capsule,delayed See Rx Instructions .Route 07/06/22 03/02/23 Rx release .COMPLEX #90 caps levothyroxine 112 mcg tablet 112 mcg PO DAILY #90 tabs 08/25/22 03/02/23 Rx (Synthroid) hydralazine 25 mg tablet 25 mg PO BID #180 tabs 09/22/22 03/02/23 Rx hydrocortisone-pramoxine 2.5 %-1 % 1 applic RECTAL BID PRN 09/24/22 03/02/23 Rx rectal cream hemorrhoids #30 grams metoprolol succinate 25 mg See Rx Instructions .Route 10/29/22 03/02/23 Rx tablet,extended release 24 hr .COMPLEX #90 tabs colestipol 1 gram tablet 1 g PO DAILY PRN Diarrhea 02/22/23 03/02/23 History ferrous sulfate 325 mg (65 mg 325 mg PO DAILY 02/22/23 03/02/23 History iron) tablet folic acid 1 mg tablet 1 mg PO DAILY 02/22/23 03/02/23 History latanoprost 0.005 % eye drops 1 drp EACH EYE HS 02/22/23 03/02/23 History magnesium 500 mg tablet 500 mg PO BID 02/22/23 03/02/23 History rosuvastatin 20 mg tablet 20 mg PO DAILY 02/22/23 03/02/23 History tramadol 50 mg tablet 50 mg PO BID 02/22/23 03/02/23 History Allergies Allergy/AdvReac Type Severity Reaction Status Date / Time Sulfa (Sulfonamide Allergy Unknown Hives Verified 03/02/23 09:57 Antibiotics) Vital Signs Vital Signs - 24 hr 03/02/23 09:50 Temperat
--- NOTE | 2023-03-02 11:46 | SUR.OPER ---
EGD began at 1140. Ended at 1142. Colonoscopy began at 1147
[2023-03-02 12:21] VITALS: BP 125/67; PULSE 58; RESP 19; O2SAT 96
[2023-03-02 12:31] VITALS: BP 142/62; PULSE 54; RESP 18; O2SAT 96
[2023-03-02 12:41] VITALS: BP 135/74; PULSE 58; RESP 18; O2SAT 99
== END 2023-03-02 12:59 | disposition home or self-care (01) ==
PROVIDERS: PCP Internal Medicine; Visit Provider Internal Medicine Gastroenterology
PROC: 0DJ08ZZ Inspection of Upper Intestinal Tract, Via Natural or Artificial Opening Endoscopic (ICD-10-PCS; CPT 43235; principal; 2023-03-02 11:00)
DX: Z12.11 Encounter for screening for malignant neoplasm of colon (principal); K64.8 Other hemorrhoids; K57.30 Diverticulosis of large intestine without perforation or abscess without bleeding; Z86.010 Personal history of colon polyps; I10 Essential (primary) hypertension; E55.9 Vitamin D deficiency, unspecified; K58.9 Irritable bowel syndrome, unspecified; Z79.82 Long term (current) use of aspirin
CPT/HCPCS: 43239; G0105; 87081; J2704; J7120

== ENCOUNTER 2023-07-02 14:41 | Outpatient (CLI) | payer MEDICARE, BC, SELFPAY ==
--- NOTE | ~2023-07-02 | DEXA_ITS ---
Bone Density Report Name: FRANK GALLO Age: 77 Sex: Female Ethnicity: White Date of : 1945 Indication: postmenopausal; screening for osteoporosis; hysterectomy; Referring Provider: UNIQUE, STEWART Study: Bone densitometry was performed. Exam Date: July 02, 2023 Accession number: [id number] Bone Density: Region BMD T-score Z-score Classification AP Spine(L1-L4) 1.198 1.4 3.9 Normal Femoral Neck (Left) 0.677 -1.5 0.7 Osteopenia Total Hip (Left) 0.767 -1.4 0.5 Osteopenia Femoral Neck (Right) 0.641 -1.9 0.3 Osteopenia Total Hip (Right) 0.736 -1.7 0.2 Osteopenia Total Hip Mean 0.751 -1.6 0.4 Osteopenia World Health Organization criteria for BMD impression classify patients as: Normal (T-score at or above -1.0), Osteopenia (T-score between -1.0 and -2.5), or Osteoporosis (T-score at or below -2.5). Clinical Information Provided by Patient: Has used the following medications: Vitamin D Has the following medical conditions: Hysterectomy Patient maximum height was 65 Menopause Age: 52 No regular weight bearing exercise Drinks caffeinated beverages Onset of menses at age 2 Number of children 13 Impression: The patient has low bone mass, based on the Right Femoral Neck T-score. Discussion: BONE DENSITY IS LOW AT ONE OR MORE SKELETAL SITES. This patient's lowest T-score is low at one or more skeletal sites. It meets the World Health Organization's (WHO) criteria for ?low bone mass? (T-score between -1.0 and -2.5). The patient's 10-year risk of fracture as calculated by FRAX is less than the threshold where pharmacological therapy is recommended by the National Osteoporosis Foundation (NOF). However, all treatment decisions require clinical judgment and consideration of individual patient factors, including patient preferences, comorbidities, previous drug use, risk factors not captured in the FRAX model (e.g., frailty, falls, vitamin D deficiency, increased bone turnover, interval significant decline in bone density) and possible under or overestimation of fracture risk by FRAX. The patient should follow a healthful lifestyle (good nutrition with adequate calcium and vitamin D, and appropriate weight-bearing exercise). Follow-Up: Consider repeating this study in 2 to 3 years to reassess this patient's status, or sooner if there is some new clinical indication. Reported by: MONALISA on 07/02/2023 3:08:00 PM. Reviewed, dictated and finalized at location AHitesh ANDREWS
== END 2023-07-02 14:42 | disposition home or self-care (01) ==
LOC: ANHIMG 14:43
PROVIDERS: PCP Internal Medicine; Visit Provider Internal Medicine
DX: Z78.0 Asymptomatic menopausal state (principal); M85.89 Other specified disorders of bone density and structure, multiple sites
CPT/HCPCS: 77080

== ENCOUNTER 2023-07-25 13:31 | Outpatient (CLI) | payer MEDICARE, BC, SELFPAY ==
--- NOTE | ~2023-07-25 | MR_ITS ---
MRI of the cervical spine Clinical History: Neck pain Technique: Axial T2-weighted and gradient images, and sagittal T1-weighted, T2-weighted, and STIR liset ges were acquired. Findings: No fracture identified. There is 3 mm anterolisthesis of C2 over C3. There is 3 mm anteroli sthesis of C3 over C4. No suspicious bone marrow signal abnormality seen. At C2-C3, there is minimal disc osteophyte complex and mild bilateral facet arthropathy. No central c anal stenosis or definite neural foraminal narrowing. At C3-C4, there is minimal disc osteophyte complex and right facet arthropathy. There is right neural foraminal narrowing. Left neural foramen preserved. No central canal stenosis or cord compression. At C4-C5, there is minimal disc osteophyte complex. There is mild left facet arthropathy with mild le ft neural foraminal narrowing. Right neural foramen preserved. No central canal stenosis or cord comp ression. At C5-C6, there is no disc bulge or herniation. No spinal canal stenosis, cord compression, or neural foraminal narrowing. At C6-C7, there is no disc bulge or herniation. No spinal canal stenosis, cord compression, or neural foraminal narrowing. No abnormal signal seen in the spinal cord. Paravertebral soft tissues are unremarkable. IMPRESSION: 3 mm anterolisthesis of C2 over C3. 3 mm anterolisthesis of C3 over C4. Mild degenerative spondylosis, as detailed above. Reviewed, dictated and finalized at [facility]. 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
== END 2023-07-25 13:32 | disposition home or self-care (01) ==
PROVIDERS: PCP Internal Medicine; Visit Provider Neurological Surgery
DX: G95.9 Disease of spinal cord, unspecified (principal); G89.29 Other chronic pain; M54.50 Low back pain, unspecified; M43.12 Spondylolisthesis, cervical region
CPT/HCPCS: 72141

== ENCOUNTER 2023-08-02 10:44 | Outpatient (CLI) | payer MEDICARE, BC, SELFPAY ==
--- NOTE | ~2023-08-02 | XR_ITS ---
EXAMINATION: XR cervical spine 4-5V DATE: 08/02/2023 11:12 INDICATION: Disease of spinal cord. Neck pain. TECHNIQUE: 5 views of cervical spine including flexion and extension views were obtained. COMPARISON: Cervical spine MRI 07/25/2023 FINDINGS: There is kyphosis of upper cervical spine. There is 5 degrees dextrocurvature of cervical s pine. There is 2 mm anterolisthesis of C3 on C4. There is 2 mm retrolisthesis of C4 on C5 that reduce s to 1 mm on flexion. Vertebral body heights are normal. There is mildly decreased disc height at C3- C4 and moderately decreased disc height at C4-C5, C5-C6, and C6-C7. There is multilevel uncovertebral joint osteoarthritis, severe bilaterally from C4-C5 through C6-C7. There is multilevel mild to moder ate facet joint osteoarthritis. There is mild central canal stenosis at C4-C5. No prevertebral soft t issue swelling. IMPRESSION: 1. Moderate cervical spondylosis. Reviewed, dictated and finalized at location A. 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
[2023-08-02 12:35] LABS: Basophils Percent Auto 0.5 % (0.2-1.2); Eosinophils Absolute Auto 0.1 K/mm3 (0-0.3); Hematocrit 33.9 % (37.0-47.0); Hemoglobin 10.4 g/dL (12.0-15.0); Immature Granulocyte Absolute 0.01 K/mm3 (0.00-0.031); Immature Granulocyte Percent A 0.2 % (0-0.5); Mean Corpuscular HGB Conc 30.7 g/dl (32-36); Mean Corpuscular Hemoglobin 26.3 pg (26-34); Mean Corpuscular Volume 85.8 fl (80-100); Mean Platelet Volume 10.6 fl (7.4-10.4); Monocytes Absolute Auto 0.5 K/mm3 (0.1-0.6); Monocytes Percent Auto 8.1 % (2.6-8.5); Neutrophils Absolute Auto 3.4 K/mm3 (1.3-6.7); Neutrophils Percent Auto 57.2 % (45.5-73.1); Platelet Count Result 228 k/mm3 (150-375); Red Blood Count 3.95 M/mm3 (4.2-5.4); Red Cell Distribution Width 13.7 % (11.5-14.5); White Blood Count 5.9 K/mm3 (4.5-10.0)
[2023-08-02 12:50] LABS: Alanine Aminotransferase 16 U/L (6-35); Albumin Level 4.1 g/dL (3.5-5.1); Alkaline Phosphatase 69 U/L (38-126); Anion Gap 9 mmol/L (8-16); Aspartate Amino Transferase 27 U/L (14-36); Bilirubin,Total 0.7 mg/dL (0.2-1.3); Blood Urea Nitrogen 22 mg/dL (7-17); Calcium 9.4 mg/dL (8.4-10.2); Carbon Dioxide 27 mmol/L (22-30); Chloride 106 mmol/L (98-107); Estimated Glomerular Filt Rate > 60; Glucose 88 mg/dL (65-110); Potassium 4.3 mmol/L (3.4-5.0); Sodium 142 mmol/L (137-145)
== END 2023-08-02 10:45 | disposition home or self-care (01) ==
PROVIDERS: Visit Provider Physician Assistant
DX: G95.9 Disease of spinal cord, unspecified (principal); I10 Essential (primary) hypertension; M43.02 Spondylolysis, cervical region
CPT/HCPCS: 36415; 72050; 80053; 85025

== ENCOUNTER 2023-12-03 00:21 | Day surgery (SDC) | payer MEDICARE, BC, SELFPAY ==
[2023-11-25 14:31] VITALS: BMI 27.5
--- NOTE | 2023-11-25 14:37 | PC.NURSE ---
Report to the Outpatient Waiting Room, entrance under the green pavilion located off [facility], at time ___0800____ on date __12/03/23 . Planned Procedure Time: ___1000 . Time changes happen often and if your time is changed the preop area will call you the afternoon before. - You and your visitor will be asked to self-screen and do not enter if you have any COVID symptoms. - A mask is optional within the hospital at this time. Patients may have clear liquids (water, carbonated beverages, clear teas, apple juice) until 3 hours prior to surgery (0700 AM) with a maximum of 20 ounces. - No food from midnight until time of surgery - Infants may have breast milk until 4 hours before surgery, formula 6 hours prior to surgery. - Children will be allowed to drink immediately following surgery. If applicable, please bring a bottle or sippy cup to assist with drinking. Juice, water, soda, and popsicles are readily available. For infants on formula, please bring formula the day of surgery. Pacifiers are allowed. Take the following medications with a SIP of water the morning of surgery: _HYDRALAZINE, LEVOTHYROXINE, METOPROLOL, & TRAMADOL, TIZANIDINE IF NEEDED_ DO NOT STOP ANY OF YOUR OTHER PRESCRIPTION MEDICATIONS PRIOR TO SURGERY ?EXCEPT THE FOLLOWING Medications to discontinue _ASPIRIN PER DR. CALLES'S - CALL OFFICE FOR INSTRUCTIONS_ Date to take last dose Please no make-up, nail finnish, hairspray, perfume, deodorant, or body powder the day of surgery. No jewelry (including any body piercings) or valuables the day of surgery, leave them at home. Please take a shower or bath the night before, or the morning of, surgery with an antibacterial soap. Wear comfortable, loose fitting clothing. Children are encouraged to wear pajamas. - Jewelry must be removed prior to entering the operating room. Rings and piercings that are not removed may be cut off. - The hospital will not accept responsibility for valuables. - Please leave all valuables, including medications, at home the day of surgery. If you are going home after surgery, a licensed pick up truck driver must drive you home. - NO public transportation without another adult if you receive anesthesia. - We recommend that an adult stay with you for 24 hours following discharge. - We also recommend that you do not drive, make important decision, drink alcoholic beverages, or take any drugs that were not prescribed by your health care provider for at least 24 hours after your discharge time. For Pediatric surgeries, we recommend two adults accompany the child home. Follow any additional instructions given to you from your surgeon. If you or anyone in your household have experienced Covid symptoms in the past week, please notify your surgeon or the nurse liaison at the phone number below for possible testing. Telephone instructions given to ____PT and asked if any additional questions and then verbalized understanding. Patient advised to call surgeon office or pre surgery nurse liaison [phone] if any additional questions.
--- NOTE | 2023-12-02 14:08 | WPDANESEPPF ---
Anes - Initial Pre Proc Eval Procedure: Operation Date: 12/03/23 10:00 Proposed Procedures p Amputation Left Second Digit - Rios Jiang JR, MD s Permanent Complete Nail Avulsion Left Hallux - Rios Jiang JR, MD Date/Time: 12/02/23 14:08 Surgeon: Rios Jiang JR, MD Pre Op Diagnosis: Hammertoe 2nd Digit Lt Foot, Patient Data Age: 78 Gender: F Height: 1.63 m Weight: 72.72 kg Allergies Allergy/AdvReac Type Severity Reaction Status Date / Time Sulfa (Sulfonamide Allergy Unknown Hives Verified 12/03/23 08:49 Antibiotics) Home Medications Medication Instructions Recorded Confirmed Type aspirin 81 mg tablet,delayed 81 mg PO DAILY 08/24/19 12/03/23 History release (Adult Low Dose Aspirin) cholecalciferol (vitamin D3) 25 1,000 unit PO DAILY 08/24/19 12/03/23 History mcg (1,000 unit) capsule valsartan 160 mg tablet See Rx Instructions .Route 04/21/22 12/03/23 Rx .COMPLEX #180 tabs ezetimibe 10 mg tablet (Zetia) 10 mg PO DAILY #30 tabs 05/11/22 12/03/23 Rx omeprazole 20 mg capsule,delayed See Rx Instructions .Route 07/06/22 12/03/23 Rx release .COMPLEX #90 caps levothyroxine 112 mcg tablet 112 mcg PO DAILY #90 tabs 08/25/22 12/03/23 Rx (Synthroid) hydralazine 25 mg tablet 25 mg PO BID #180 tabs 09/22/22 12/03/23 Rx metoprolol succinate 25 mg See Rx Instructions .Route 10/29/22 12/03/23 Rx tablet,extended release 24 hr .COMPLEX #90 tabs folic acid 1 mg tablet 1 mg PO DAILY 02/22/23 12/03/23 History latanoprost 0.005 % eye drops 1 drp EACH EYE HS 02/22/23 12/03/23 History rosuvastatin 20 mg tablet 20 mg PO DAILY 02/22/23 12/03/23 History tramadol 50 mg tablet 50 mg PO BID PRN Pain 02/22/23 12/03/23 History tizanidine 4 mg capsule 4 mg PO TID PRN Muscle Spasm 03/30/23 12/03/23 History magnesium 500 mg tablet 500 mg PO BID 07/15/23 12/03/23 History hydrocortisone-pramoxine 2.5 %-1 % See Rx Instructions .Route 11/29/23 12/03/23 Rx rectal cream .COMPLEX #30 grams Patient hx anesthesia problems: none Family hx anesthesia problems: none Results Review: All pre-operative results and documents have been reviewed as part of the pre-operative evaluation. [facility] Past Medical History Medical History (Updated 12/02/23 @ 14:10 by Jefferson Fernandez DO) Aortic valve insufficiency Arthritis BMI 29.0-29.9,adult Cardiac murmur Cholecystectomy planned Chronic fatigue, unspecified Diverticulosis Essential hypertension Gastroesophageal reflux disease with esophagitis Glaucoma Hemorrhoids Hypothyroidism Left hip pain Nocturnal leg cramps Vitamin D deficiency, unspecified Surgical History Surgical History History of bladder suspension procedure S/P hysterectomy with oophorectomy Family History Family History Sibling Patient's sister is in good health Patient's brother is in good health Thyroid disorder Lupus Heart disease Father Heart disease Mother Family history of malignant neoplasm of esophagus Family history of malignant neoplasm Diabetes mellitus Social History Social History (Updated 11/17/23 @ 12:58 by [place] Murdock [facility]) Smoking status: Never smoker Second hand tobacco smoke exposure: No Alcohol intake: never Substance use: never Substance use type: does not use Do You Feel Safe in your Home?: Yes Lack of Transportation: No Lack of Food: Never True Current Housing: I Have Housing Concerned About Future Housing: No Difficulty Paying Gas/Electric Bills: No Difficulty Paying for Meds: No Currently Unemployed: No Education: High School Diploma/GED Difficulty w/ Childcare or Family Care: No Living arrangements: with family Occupation/Education: retired 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
--- NOTE | ~2023-12-03 | XR_ITS ---
EXAMINATION: XR surgery orthopedic DATE: 12/03/2023 11:05 INDICATION: Left second toe amputation TECHNIQUE: A single dorsal plantar fluoroscopic image of the left forefoot was obtained during proced ure performed by Dr. Jiang. Radiologist was not present for the imaging or procedure. The amount o f fluoroscopy time used during this procedure was 0.1 minutes. COMPARISON: None. FINDINGS: Amputation of the left second rib level of the metatarsophalangeal joint. Remaining bones are normal alignment. No fractures. Joint spaces are normal. IMPRESSION: 1. Left second toe amputation. See procedure note for further detail. Reviewed, dictated and finalized at location B.
--- NOTE | 2023-12-03 07:13 | WPDHPUPDATE1 ---
History and Physical Update Update Date/Time: 12/03/23 07:13 History and Physical has been reviewed, including an updated exam of the patient. There are NO changes in the patient's condition. Risks, benefits, and alternatives have been discussed and questions answered. Patient agrees to proceed with procedure.
[2023-12-03 08:50] VITALS: BP 147/50; PULSE 57; RESP 16; TEMP 36.4; O2SAT 99
[2023-12-03] MEDS: LACTATED RINGERS 1,000 ML 30 ML IV CONT (09:00)
[2023-12-03 09:04] VITALS: BMI 28.3
[2023-12-03] MEDS: ceFAZolin 2 GM/D5W 50 ML 2 GM/50 ML BAG IVPB (10:25)
[2023-12-03] MEDS: LIDOCAINE HCL 2% PF INJ 5 ML VIAL 10 ML INFILTRATE (10:42)
[2023-12-03] MEDS: BUPivacaine HCL 0.5% 10 ML AMP INFILTRATE (10:43)
[2023-12-03] MEDS: KETOROLAC 15 MG/ML VIAL (*BKC) IV PUSH (10:58)
[2023-12-03 11:17] VITALS: BP 121/55; PULSE 54; RESP 16; O2SAT 97
--- NOTE | 2023-12-03 11:26 | W.PM.PROC2 ---
Procedure Note - Detailed Date of Procedure 12/03/23 Pre-op Diagnosis 1. 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 Onychomycosis of the left hallux nail plate Post-op Diagnosis Same Procedure Performed 1. Amputation second digit left foot 2. Permanent complete nail avulsion of the left hallux nail plate. Surgeon Rios Jiang JR, DPM Anesthesia MAC and Local Indications Painful left hallux nail plate with onychodystrophy. Painful left second digit dislocated atop the hallux. Description of Procedure Under mild sedation, the patient was brought to the operating room, placed on the operating table in the supine position. A pneumatic ankle tourniquet was placed about the patient's ankle. Following general anesthesia, I performed a proximal 1st and 2nd metatarsal Serrano Block. The foot was then scrubbed, prepped, and draped in the usual aseptic manner. An Esmarch bandage was then used to examine the patient's foot and pneumatic ankle tourniquet was then inflated. Surgery began in the following manner. Attention was directed to the dorsal aspect of the 2nd metatarsal phalangeal joint region where a racquet style incision was made about the base of the the 2nd digit. The incision was continued deep down through the subcutaneous tissues using sharp and blunt dissection. All bleeders were cauterized as necessary. A full-length periosteal incision was made overlying the 2nd metatarsal phalangeal joint, disarticulating the 2nd digit. The 2nd digit was removed from the operative site and placed on the back table and later sent for gross pathology. The remaining tissue was healthy and bleeding. The cartilage to the 2nd metatarsal head was normal and healthy. The wound site was then flushed with copious amounts of sterile saline.Next, the periosteum and capsular structures overlying the 2nd metatarsophalangeal joints were reapproximated with 3-0 Vicryl. Next, the skin was reapproximated and coapted utilizing 4-0 Prolene in simple interrupted suture fashion technique. Next, I utilized a [place] Periosteal Elavator to seperate the left hallux nail plate from the nail bed. After removal of the nail plate three 30 second applications of 89% Phenol was applied to the left hallux nail bed including the proximal nail fold. Upon completion of the procedure, the incision was dressed with Adaptic, 4 x 4's, Kerlix, and Coban. The pneumatic ankle tourniquet was then deflated and a prompt hyperemic response noted to all digits of the foot. A surgical shoe was then applied. The patient did very well with the procedure and the anesthesia. The patient was transferred to the recovery room with vital signs stable and vascular status intact to all remaining toes of the affected foot. Following a period of postoperative monitoring, the patient will be discharged home on the following written and oral postoperative instructions: 1. Keep the dressing clean, dry, and intact. Use a cast protector bag with showers. 2. The patient should use a surgical shoe for ambulation postoperatively. 3. The patient should be on bedrest with bathroom privileges and elevate the affected foot when at rest. 4. The patient to contact Dr. Jiang for all postop care and if any problems arise. 5. Prescriptions were written for Percocet 5/325 dispensed 40 to be taken 1 p.o. q.4 to 6 hours as needed for severe pain. Estimated Blood Loss 1 Drains No Packing No Pathology Yes Complications No immediate complications Condition Stable Disposition Same day
[2023-12-03 11:30] VITALS: BP 135/62; PULSE 55
[2023-12-03 12:00] VITALS: BP 153/63; PULSE 54
[2023-12-03 12:30] VITALS: BP 152/55; PULSE 48
== END 2023-12-03 12:59 | disposition home or self-care (01) ==
PROVIDERS: PCP Internal Medicine; Visit Provider Podiatrist Foot & Ankle Surgery
PROC: (CPT 28820; principal; 2023-12-03 10:00)
PROC: 0HBRXZZ Excision of Toe Nail, External Approach (ICD-10-PCS; CPT 11750; 2023-12-03 10:00)
DX: M20.42 Other hammer toe(s) (acquired), left foot (principal); B35.1 Tinea unguium; I10 Essential (primary) hypertension; E03.9 Hypothyroidism, unspecified; E55.9 Vitamin D deficiency, unspecified; K21.9 Gastro-esophageal reflux disease without esophagitis; H40.9 Unspecified glaucoma; Z79.82 Long term (current) use of aspirin; Z79.84 Long term (current) use of oral hypoglycemic drugs
CPT/HCPCS: 28820; 11730; 88305; 88311; 99199; J0690; J1596; J1885; J2405; J2704; J3010; J7120

== ENCOUNTER 2024-06-19 08:01 | Outpatient (CLI) | payer MEDICARE, BC, SELFPAY ==
--- NOTE | ~2024-06-19 | NM_ITS ---
EXAMINATION: NM ren stress w perfusion DATE: 06/19/2024 11:09 INDICATION: Chest pain. TECHNIQUE: Rest images were obtained following intravenous administration of 10.8 mCi Tc99m tetrofosm in (Myoview). The patient was infused intravenously with Lexiscan (regadenoson). Then, 31.8 mCi Tc99m tetrofosmin (Myoview) was administered intravenously, and stress images were obtained. Data was sergei nstructed into short axis and horizontal and vertical long axis SPECT images. Gated SPECT images were also obtained. COMPARISON: Myocardial perfusion imaging 12/13/2020 FINDINGS: There is no definite reversible or fixed perfusion abnormality to suggest ischemia or infar ction. There is no segmental wall motion abnormality. Left ventricular ejection fraction measures 6 5%. IMPRESSION: 1. No definite ischemia or infarct. 2. Normal left ventricular ejection fraction measuring 65%. Reviewed, dictated and finalized at location A.
--- NOTE | 2024-06-19 08:28 | EST_ITS ---
Patient Info Name: Keisha Collins Age: 78 years : 1945 Gender: Female Ht: 64 in Wt: 168 lbs BSA: 1.88 m2 HR: 53 bpm BP: 209 / 96 mmHg Exam Date: 06/19/2024 9:17 AM Exam Location: Echo Lab Patient Status: Outpatient Admit Date: 06/19/2024 Staff Ordering Physician: Brett Steiner DO Attending Provider: Brett Steiner DO Exercise Technologist: Kassandra Badillo RDCS Exercise Physician: Brett Steiner DO Exam Type: CA stress ren w NM Study Info A regadenoson stress test was performed. Summary 1. 1. Negative lexiscan stress test for ischemic ST changes by ECG criteria. 2. 2. Baseline hypertension. 3. 3. Nuclear scan to follow and will be reported separately. Please correlate with it. 4. 4. Patient infiormed of the above results. Protocol: Lexiscan Stress ECG Details Stage: REST Duration (min): 2 min : 18 sec HR (bpm): 55 SBP (mmHg): 209 DBP (mmHg): 96 Stage: REST Duration (min): 18 min : 23 sec HR (bpm): 58 SBP (mmHg): 207 DBP (mmHg): 90 Stage: STAGE 1 Duration (min): 1 min : 0 sec HR (bpm): 74 SBP (mmHg): 207 DBP (mmHg): 90 Stage: RECOVERY Duration (min): 1 min : 0 sec HR (bpm): 77 SBP (mmHg): 219 DBP (mmHg): 71 Stage: RECOVERY Duration (min): 2 min : 0 sec HR (bpm): 72 SBP (mmHg): 219 DBP (mmHg): 71 Stage: RECOVERY Duration (min): 3 min : 0 sec HR (bpm): 83 SBP (mmHg): 170 DBP (mmHg): 75 Stage: RECOVERY Duration (min): 3 min : 30 sec HR (bpm): 71 SBP (mmHg): 170 DBP (mmHg): 75 Rest HR: 58 bpm Peak HR: 83 bpm Rest Sys BP: 207 mmHg Peak Sys BP: 219 mmHg Max Pred HR: 142 bpm % Max Pred HR: 58 % Target HR: 121 bpm Max RPP: 18,177 bpm*mmHg Termination Reason: Completed protocol Cardiac Symptoms: Shortness of breath Total Time: 1 min : 0 sec Rest Verde BP: 90 mmHg Peak Verde BP: 71 mmHg Total Dose: 0.4 mg Resting ECG Sinus bradycardia. Stress ECG No ST changes. Arrhythmias None. Report Signatures
--- NOTE | 2024-06-19 08:30 | ECHO_ITS ---
Patient Info Name: Keisha Collins Age: 78 years : 1945 Gender: Female Ht: 64 in Wt: 168 lbs BSA: 1.88 m2 HR: 73 bpm BP: 212 / 106 mmHg Technical Quality: Good Exam Date: 06/19/2024 10:24 AM Exam Location: Echo Lab Patient Status: Outpatient Admit Date: 06/19/2024 Staff Ordering Physician: Brett Steiner DO [place]arrow Worker Helper: Estefani Lott RDCS Attending Provider: Brett Steiner DO Referring Physician: Jatin MOON; Exam Type: CA echo doppler color flow Study Info Indications I35.1 - Nonrheumatic aortic (valve) insufficiency Complete two-dimensional, color flow and Doppler transthoracic echocardiogram is performed. Strain analysis performed. Summary 1. Complete two-dimensional, color flow and Doppler transthoracic echocardiogram is performed. 2. Left ventricular chamber dimension is normal. 3. Left ventricular systolic function is normal, estimated at 60-65%. 4. The left ventricular diastolic function is grade I diastolic dysfunction. 5. E/e' 16 is elevated. 6. Global longitudinal strain is normal at -20.5%. 7. Left atrial chamber dimension is moderately enlarged. 8. The aortic valve is not well visualized. Cannot determine number of aortic valve leaflets. 9. There is mild aortic valve sclerosis. 10. There is mild aortic valve stenosis based on a peak velocity of 191 cm/s, mean gradient of 7 mmHg, and aortic valve area of 1.7 cm2. 11. There is mild aortic valve regurgitation. 12. The mitral valve has mildly calcified annulus. 13. There is mild mitral valve regurgitation. 14. No pulmonary hypertension, estimated pulmonary arterial systolic pressure is 40 mmHg. Left Ventricle E/e' 16 is elevated. Global longitudinal strain is normal at -20.5%. Left ventricular chamber dimension is normal. Left ventricular systolic function is normal, estimated at 60-65%. The left ventricular diastolic function is grade I diastolic dysfunction. Right Ventricle Right ventricular systolic function is normal and with normal TAPSE 3.1 cm. Right ventricular chamber dimension is normal. Left Atria Left atrial chamber dimension is moderately enlarged. Right Atria Right atrial chamber dimension is normal. Aortic Valve The aortic valve is not well visualized. Cannot determine number of aortic valve leaflets. There is mild aortic valve sclerosis. There is mild aortic valve stenosis based on a peak velocity of 191 cm/s, mean gradient of 7 mmHg, and aortic valve area of 1.7 cm2. There is mild aortic valve regurgitation. Pulmonic Valve There is no pulmonic regurgitation. Mitral Valve The mitral valve has mildly calcified annulus. There is no mitral valve stenosis. There is mild mitral valve regurgitation. Tricuspid Valve There is no tricuspid valve regurgitation. No pulmonary hypertension, estimated pulmonary arterial systolic pressure is 40 mmHg. Pericardium/Pleural There is no pericardial effusion. Inferior Vena Cava Normal inferior vena cava with >50% collapse upon inspiration consistent with normal right atrial pressure, 5 mmHg. Aorta The aortic root size at the sinus of Valsalva is normal. Left Ventricular Outflow Tract Name Value Normal LVOT 2D LVOT Diameter 1.9 cm LVOT Doppler LVOT Peak Gradient
== END 2024-06-19 08:02 | disposition home or self-care (01) ==
LOC: ANHIMG 08:04
PROVIDERS: PCP Internal Medicine; Visit Provider Internal Medicine Cardiovascular Disease
DX: I35.1 Nonrheumatic aortic (valve) insufficiency (principal)
CPT/HCPCS: 78452; 93017; 93306; A9502; J2785

== ENCOUNTER 2024-10-03 14:48 | Outpatient (CLI) | payer MEDICARE, BC, SELFPAY ==
--- NOTE | ~2024-10-03 | MM_ITS ---
EXAMINATION: MM screening kameron BI w lowlel HISTORY: Screening mammogram TECHNIQUE: Craniocaudal and mediolateral oblique 3-D tomosynthesis images were obtained and synthetic 2-D images were generated. CAD analysis was submitted and interpreted. COMPARISON: No prior mammogram is available for comparison at this institution. BREAST PARENCHYMAL COMPOSITION:Not Dense. There are scattered areas of fibroglandular density. FINDINGS: No suspicious mass, calcification, or architectural distortion are identified in either jerome ast to suggest malignancy. There has been no suspicious interval change. IMPRESSION: No mammographic evidence of malignancy. Recommend routine screening mammography in one year. BI-RADS Category 1: Negative Reviewed, dictated and finalized at location . 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
== END 2024-10-03 14:49 | disposition home or self-care (01) ==
LOC: CHSIMG 14:50
PROVIDERS: PCP Internal Medicine; Visit Provider Internal Medicine
DX: Z12.31 Encounter for screening mammogram for malignant neoplasm of breast (principal)
CPT/HCPCS: 77063; 77067

== ENCOUNTER 2024-10-06 14:21 | Outpatient (CLI) | payer MEDICARE, BC, SELFPAY ==
--- NOTE | ~2024-10-06 | XR_ITS ---
3 VIEWS NASAL BONES Ordering provider: Yue Viera, History: . Deviated nasal bridge . Comparison: None. FINDINGS: No acute fracture. Mild left nasal septal deviation. Soft tissues are normal. IMPRESSION: NO NASAL BONE FRACTURE. MILD LEFT NASAL SEPTAL DEVIATION. Reviewed, dictated and finalized at location A. 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
== END 2024-10-06 14:22 | disposition home or self-care (01) ==
LOC: MICIMG 14:26
PROVIDERS: PCP Internal Medicine; Visit Provider Internal Medicine
DX: J34.2 Deviated nasal septum (principal)
CPT/HCPCS: 70160